=== PATIENT | male | born 1955 | race Caucasian/White ===

== ENCOUNTER → 2019-11-11 10:30 | Outpatient (CLI) | payer MEDICARE, MEDICAID ==
--- NOTE | 2019-11-13 12:10 | EC ---
PATIENT:YOHANNES VARGAS DATE OF SERVICE: 11/11/19 SEX: M MEDICAL RECORD: [id number] DATE OF : 59 LOCATION:[facility] [place] AGE OF PATIENT: 63 ADMISSION DATE: 11/11/19 REFERRING PHYSICIAN: INTERPRETING PHYSICIAN: HZOU ELIZONDO MD ECHOCARDIOGRAM REPORT ECHO CHARGES 4 ECHO COMPLETE Date: 11/11/19 CLINICAL DIAGNOSIS: CARDIOMYOPATHY H/O HTN/A-FIB ECHOCARDIOGRAPHIC MEASUREMENTS (adult normal given) AC root (d.<3.7cm) 3.1 cm LV Septum d (<1.2 cm> 1.5 cm Valve Excursion 2.1 cm LV Septum (systole) 1.8 cm Left Atria (s.<4.0cm> 4.4 cm LVPW d(<1.2cm) 1.4 cm RV (d.<2.3cm) 3.1 cm LVPW (sytole) 1.9 cm LV diastole(<5.6CM) 5.2 cm MV E-F(>70mm/sec) cm LV systole 3.2 cm LVOT Diameter 2.3 cm MV exc.(>10mm) cm Est.ejection fraction (50-75%) % DOPPLER: LVIT cm/sec A 53.0 cm/sec E 58.0 cm/sec LA cm/sec RVSP 33.0 mmHg LVOT 100 cm/sec AOP1/2T m/s Asc. Ao 120 cm/sec RVOT 56.0 cm/sec RA cm/sec PA 88.0 cm/sec AV Gradient Peak 5.8 mmHg AV Mean 3.1 mmHg AV Area 3.3 cm MV Gradient Peak 2.1 mmHg MV Mean 0.70 mmHg MV Area cm COMMENTS: OP - HC Wound Care Coordinator: 1 MAL JOSE LUIS Shirt Maker: 3 Dr. Abraham TAPE# PACS Pericardial Effusion N DATE OF SERVICE: Adequate 2D, color flow imaging, spectral Doppler, and M-Mode. LVH is present. LV internal dimensions are normal. Wall motion is normal. EF is greater than or equal to 55%. Aortic valve is tricuspid. No evidence of stenosis by Doppler interrogation. Left atrium is dilated at 4.4 cm. Mitral valve shows no prolapse. Trace MR. Right-sided chambers are grossly normal. Mild TR. ECHOCARDIOGRAM REPORT [id number] YOHANNES VARGAS TRANSINT:[id number] Voice Confirmation ID: [id number] DOCUMENT ID: [id number] ZHOU ELIZONDO MD at 1210 CC: [id number] DICTATION DATE: 11/12/19 1413 [employer] PRINTER: 11/12/19 1645 [facility] CLI 11/11/19 [place] [id number] [place] [id number]
== END | disposition home or self-care (01) ==
LOC: D.HCCECHO 10:30
PROVIDERS: ATTEND Internal Medicine Interventional Cardiology
DX: I25.10 Atherosclerotic heart disease of native coronary artery without angina pectoris (principal)

== ENCOUNTER 2020-11-18 10:13 | Emergency (ER) | payer MEDICARE, MEDICAID ==
[~2020-11-18] VITALS: Ht 172.7 cm; Wt 90.9 kg
[2020-11-18 10:39] VITALS: BP 111/74; Ht 172.7 cm; Wt 90.9 kg
[2020-11-18] MEDS ORDERED: PACERONE200 MG (10:42)
[2020-11-18] MEDS ORDERED: FUROSEMIDE40 MG (10:43)
[2020-11-18] MEDS ORDERED: ASPIRIN325 MG ×2 (10:43)
[2020-11-18] MEDS ORDERED: ZESTRIL10 MG (10:44)
== END 2020-11-18 14:25 | disposition left against medical advice (07) ==
LOC: D.ER 10:13
DX: M79.671 Pain in right foot (principal)